=== PATIENT | female | born 1945 | race Caucasian/White ===

== ENCOUNTER 2018-09-05 16:37 | Emergency (ER) | payer MEDICARE, BC ==
[2018-09-05] MEDS ORDERED: Ondansetron PF 4 MG/2 ML Vial ONE (17:15)
[2018-09-05 17:24] LABS: #Eosinphils 0.2 thou/uL (0.0-0.7); #Lymphocytes 1.4 thou/uL (1.20-3.40); #Monocytes 0.6 thou/uL (0.11-0.59); #Neutrophils 5.3 thou/uL (1.40-6.50); %Lymphocytes 18.8 % (21.0-51.0); %Monocytes 7.9 % (0.0-10.0); %Neutrophils 71.3 % (42.0-75.0); Hemoglobin 12.8 g/dL (12.0-16.0); Mean Corpuscular HGB CONC 33.9 g/dL (32.0-36.0); Mean Corpuscular Hemoglobin 29.3 pg (27.0-31.0); Mean Corpuscular Volume 86.5 fL (78.0-98.0); Mean Platelet Volume 6.6 fL (7.4-10.4); Platelet Count 203 thou/uL (130-400); RBC Distribution Width 12.5 % (11.5-14.5); Red Blood Cell (RBC) Count 4.36 mill/uL (4.20-5.40); White Blood Cell (WBC) Count 7.4 thou/uL (4.8-10.8)
[2018-09-05 17:39] LABS: ALT (SGPT) 67 U/L (8-55); AST (SGOT) 121 U/L (5-34); Albumin 4.1 g/dL (3.4-4.8); Alkaline Phosphatase 104 U/L (40-150); Anion Gap 15 mmol/L (10-20); BUN (Urea Nitrogen) 16 mg/dL (9.8-20.1); Bilirubin, Total 1.3 mg/dL (0.2-1.2); Calc. Creatinine Clearance 0 mL/min (70-130); Carbon Dioxide 24 mmol/L (23-31); Chloride 105 mmol/L (98-107); Estimated GFR-MDRD 67; Globulin 2.4 g/dL (2.4-3.5); Glucose 193 mg/dL (83-110); Potassium 4.5 mmol/L (3.5-5.1); Protein, Total 6.5 g/dL (6.0-8.3); Sodium 139 mmol/L (136-145)
[2018-09-05 17:45] LABS: Bilirubin Negative (Negative); Blood, Urine Negative (Negative); Clarity CLEAR (Clear); Glucose, Urine (Dipstick) Negative (Negative); Leukocyte Trace (Negative); Nitrite Negative (Negative); Protein, Urine (Dipstick) Negative (Neg-Trace); Specific Gravity, Urine 1.024 (1.002-1.036)
[2018-09-05 17:47] LABS: Bacteria/HPF None Seen HPF (None Seen); Hyaline Casts/LPF 0-3 HYALINE CAST LPF (0-3 Hyaline); Pathc Cast-AUWi Flag 0.81 (0-2.49); RBC/HPF 0-3 HPF (0-3); Squamous Epithelial 0-3 HPF (0-3); WBC/HPF 0-3 HPF (0-3)
--- NOTE | 2018-09-05 17:52 | RAD ---
PORTABLE UPRIGHT FRONTAL CHEST RADIOGRAPH 09/05/18 COMPARISON: None. HISTORY: Abdominal pain. FINDINGS: Lungs are clear. Heart and mediastinal contours are unremarkable. IMPRESSION: No acute findings. POS: [facility]
== END 2018-09-05 19:09 | disposition home or self-care (01) ==
LOC: ERS 16:37
DX: R11.2 Nausea with vomiting, unspecified (principal); R19.7 Diarrhea, unspecified; E11.9 Type 2 diabetes mellitus without complications; Z79.899 Other long term (current) drug therapy; Z79.4 Long term (current) use of insulin
CPT/HCPCS: 71045; 80053; 81003; 81015; 83880; 84484; 85025; 93005; 96361; 96374; J2405

== ENCOUNTER 2019-03-06 19:47 | Observation (INO) | payer MEDICARE, BC ==
[2019-03-06 20:33] LABS: #Basophils 0.1 thou/uL (0.0-0.2); #Eosinphils 0.2 thou/uL (0.0-0.7); #Lymphocytes 2.3 thou/uL (1.20-3.40); #Monocytes 0.6 thou/uL (0.11-0.59); #Neutrophils 3.1 thou/uL (1.40-6.50); %Eosinophils 2.6 % (0.0-10.0); %Lymphocytes 37.1 % (21.0-51.0); %Monocytes 9.2 % (0.0-10.0); %Neutrophils 50.1 % (42.0-75.0); Hemoglobin 12.1 g/dL (12.0-16.0); Mean Corpuscular HGB CONC 34.3 g/dL (32.0-36.0); Mean Corpuscular Hemoglobin 29.7 pg (27.0-31.0); Mean Corpuscular Volume 86.6 fL (78.0-98.0); Mean Platelet Volume 6.6 fL (7.4-10.4); Platelet Count 204 thou/uL (130-400); RBC Distribution Width 12.6 % (11.5-14.5); Red Blood Cell (RBC) Count 4.07 mill/uL (4.20-5.40); White Blood Cell (WBC) Count 6.2 thou/uL (4.8-10.8)
--- NOTE | 2019-03-06 20:41 | RAD ---
Frontal radiograph chest: 03/06/2019 COMPARISON: 09/05/2018 HISTORY: Chest pain FINDINGS: There is mild soft tissue density in the right paratracheal region. There is no pneumothora x or pleural fluid and no focal consolidation or alveolar edema. IMPRESSION: Mild soft tissue density in the right paratracheal region is likely on the basis of vascu lar structures. Follow-up PA and lateral imaging of the chest advised to exclude lymphadenopathy. No focal consolidation or alveolar edema.
[2019-03-06 20:54] LABS: ALT (SGPT) 21 U/L (8-55); AST (SGOT) 16 U/L (5-34); Albumin 4.1 g/dL (3.4-4.8); Alkaline Phosphatase 77 U/L (40-150); Anion Gap 11 mmol/L (10-20); BUN (Urea Nitrogen) 15 mg/dL (9.8-20.1); Bilirubin, Total 0.3 mg/dL (0.2-1.2); CK (CPK) 433 U/L (29-168); Calc. Creatinine Clearance 0 mL/min (70-130); Calcium 9.2 mg/dL (7.8-10.44); Carbon Dioxide 30 mmol/L (23-31); Chloride 102 mmol/L (98-107); Estimated GFR-MDRD 42; Globulin 2.3 g/dL (2.4-3.5); Glucose 268 mg/dL (83-110); Potassium 4.2 mmol/L (3.5-5.1); Protein, Total 6.4 g/dL (6.0-8.3); Sodium 139 mmol/L (136-145)
[2019-03-06] MEDS ORDERED: Ondansetron PF 4 MG/2 ML Vial IVP PRN (23:37)
[2019-03-06] MEDS ORDERED: Acetaminophen 325 MG TAB PO PRN (23:37)
[2019-03-06] MEDS ORDERED: Ondansetron ODT 4 MG TAB SL PRN (23:37)
[2019-03-07] VITALS: BMI 38.0
[2019-03-07 00:11] LABS: Troponin I Less than 0.010 ng/mL (< 0.028)
[2019-03-07 02:52] LABS: Troponin I Less than 0.010 ng/mL (< 0.028)
[2019-03-07 08:49] LABS: #Eosinphils 0.1 thou/uL (0.0-0.7); #Monocytes 0.5 thou/uL (0.11-0.59); #Neutrophils 3.4 thou/uL (1.40-6.50); %Basophils 0.4 % (0.0-1.0); %Eosinophils 2.3 % (0.0-10.0); %Lymphocytes 32.8 % (21.0-51.0); %Monocytes 8.7 % (0.0-10.0); %Neutrophils 55.7 % (42.0-75.0); Hemoglobin 12.2 g/dL (12.0-16.0); Mean Corpuscular HGB CONC 34.4 g/dL (32.0-36.0); Mean Corpuscular Hemoglobin 29.2 pg (27.0-31.0); Mean Corpuscular Volume 84.9 fL (78.0-98.0); Mean Platelet Volume 6.6 fL (7.4-10.4); Platelet Count 197 thou/uL (130-400); RBC Distribution Width 12.7 % (11.5-14.5); Red Blood Cell (RBC) Count 4.16 mill/uL (4.20-5.40); White Blood Cell (WBC) Count 6.1 thou/uL (4.8-10.8)
[2019-03-07 09:03] LABS: Anion Gap 12 mmol/L (10-20); BUN (Urea Nitrogen) 16 mg/dL (9.8-20.1); Calc. Creatinine Clearance 89 mL/min (70-130); Calcium 8.8 mg/dL (7.8-10.44); Carbon Dioxide 26 mmol/L (23-31); Cardiac Risk 3.3 (Less than 4.5); Chloride 105 mmol/L (98-107); Cholesterol 116 mg/dl (< 200 Desired); Estimated GFR-MDRD 62; Glucose 268 mg/dL (83-110); HDL Cholesterol 35 mg/dL (>60 Neg Risk); LDL Cholesterol, Calculated 53 mg/dL; Magnesium 1.6 mg/dL (1.6-2.6); Potassium 4.5 mmol/L (3.5-5.1); Sodium 138 mmol/L (136-145); Triglycerides 142 mg/dL (Less than 150)
[2019-03-07] MEDS ORDERED: ADENOSINE 60 MG/20 ML VIAL ONE (09:50)
[2019-03-07] MEDS: Hydrochlorothiazide 25 MG TAB PO SCH (10:03)
[2019-03-07] MEDS: Amlodipine 5 MG TAB PO SCH (10:03)
[2019-03-07] MEDS: Losartan 25 MG TAB PO SCH ×2 (10:04→20:29)
[2019-03-07] MEDS: HumaLOG 300 UNITS/3 ML VIAL SC SCH ×2 (12:24→17:54)
[2019-03-07] MEDS: Aspirin/APAP/Caffeine Tab (Excedrin Migraine) PO SCH ×3 (12:27→23:37)
--- NOTE | 2019-03-07 15:08 | RAD ---
EXAM: Two views chest PROVIDED CLINICAL HISTORY: Abnormal chest radiograph COMPARISON: 03/06/2019 FINDINGS: Cardiac and mediastinal silhouette appears within normal limits. Lungs appear free of significant opa city. No pleural fluid or pneumothorax apparent. IMPRESSION: No evidence for an acute cardiopulmonary process.
[2019-03-07] MEDS: Nebivolol HCl 5 MG TAB PO SCH ×2 (15:52→20:30)
[2019-03-07] MEDS: Icosapent Ethyl [Vascepa] 1 GM PO SCH (20:28)
[2019-03-07] MEDS ORDERED: Clopidogrel Bisulfate 75 MG TAB PO SCH (21:00)
[2019-03-07] MEDS ORDERED: Rosuvastatin 10 MG TAB PO SCH (21:00)
[2019-03-07] MEDS: Insulin Glargine 75 UNITS in Pre-Filled Syringe 1 EACH SC SCH (21:20)
[2019-03-08 05:36] LABS: #Basophils 0.1 thou/uL (0.0-0.2); #Eosinphils 0.2 thou/uL (0.0-0.7); #Lymphocytes 2.1 thou/uL (1.20-3.40); #Monocytes 0.6 thou/uL (0.11-0.59); #Neutrophils 3.4 thou/uL (1.40-6.50); %Eosinophils 2.5 % (0.0-10.0); %Lymphocytes 33.7 % (21.0-51.0); %Neutrophils 53.9 % (42.0-75.0); Hemoglobin 12.5 g/dL (12.0-16.0); Mean Corpuscular HGB CONC 34.6 g/dL (32.0-36.0); Mean Corpuscular Hemoglobin 29.8 pg (27.0-31.0); Mean Corpuscular Volume 86.1 fL (78.0-98.0); Mean Platelet Volume 7.1 fL (7.4-10.4); Platelet Count 193 thou/uL (130-400); RBC Distribution Width 12.8 % (11.5-14.5); White Blood Cell (WBC) Count 6.2 thou/uL (4.8-10.8)
[2019-03-08] MEDS: Aspirin/APAP/Caffeine Tab (Excedrin Migraine) PO SCH ×2 (05:42→09:10)
[2019-03-08 05:52] LABS: Anion Gap 13 mmol/L (10-20); BUN (Urea Nitrogen) 19 mg/dL (9.8-20.1); Calc. Creatinine Clearance 84 mL/min (70-130); Calcium 9.1 mg/dL (7.8-10.44); Carbon Dioxide 26 mmol/L (23-31); Chloride 101 mmol/L (98-107); Estimated GFR-MDRD 58; Glucose 279 mg/dL (83-110); Potassium 4.5 mmol/L (3.5-5.1); Sodium 135 mmol/L (136-145)
[2019-03-08] MEDS ORDERED: Levothyroxine Sodium 75 MCG TAB PO SCH (06:00)
[2019-03-08 07:17] VITALS: TEMP 97.6
--- NOTE | 2019-03-08 07:48 | HP ---
PRIMARY CARE PHYSICIAN: Dr. Gage. CHIEF COMPLAINT: Chest pain. HISTORY OF PRESENT ILLNESS: Ms. Wong is a 74-year-old female with past medical history of hypertension, hyperlipidemia, diabetes mellitus type 2 and coronary artery disease, who had presented to the ED late last night after she had felt some chest tightness and felt that someone was standing on her chest. She had taken her home dose of Ranexa that helped and she states that the chest tightness worsened when she was up and exerting herself and stated that she was not able to take a few steps without noticing the symptoms. She states that she sees Dr. Cramer, who is a laborer [employer], and she states that she also has a history of [id number]; however, this was treated status post ablation. In the ED, she was given fluid bolus of IV normal saline since she had already taken aspirin 325, and she was found to be in normal sinus rhythm with PVC. Her serial troponins were found to be negative x3 and she had no further symptoms at that time. She was transferred up to the floor for further monitoring and rule out of her chest pain. She had then denies any further fever, chills, headache, blurred vision, dizziness, chest pain, palpitations, shortness of breath, abdominal pain, nausea, or vomiting. REVIEW OF SYSTEMS: All other systems were reviewed and found to be negative unless mentioned in HPI. PAST MEDICAL HISTORY: Hypertension, hyperlipidemia, diabetes mellitus type 2, coronary artery disease and history of Sxqyd-[id number]-Mjujg syndrome. PAST SURGICAL HISTORY: Cardiac catheterization and ablation for [id number]. PSYCHIATRIC HISTORY: None. SOCIAL HISTORY: The patient denies alcohol, tobacco, or illicit drug use. ALLERGIES: CODEINE, PENICILLINS, AND SULFA. CURRENT HOME MEDICATIONS: 1. Amlodipine 5 mg p.o. daily. 2. Aspirin 325 mg oral daily. 3. Clopidogrel 75 mg p.o. daily. 4. Humalog 15 units subcu before meals. 5. Hydrochlorothiazide 25 mg oral daily. 6. Vascepa 4 g p.o. b.i.d. 7. Insulin glargine/Lantus 75 units subcu b.i.d. 8. Levothyroxine 75 mg p.o. daily. 9. Bystolic 40 mg p.o. b.i.d. 10. Protonix 40 mg oral daily. 11. Ranolazine 1000 mg p.o. b.i.d. 12. Rosuvastatin 10 mg p.o. at bedtime. 13. Telmisartan 40 mg p.o. b.i.d. PHYSICAL EXAMINATION: VITAL SIGNS: BP 148/67, pulse 64, respirations 16, temperature 97.9, O2 saturation 95% on room air. GENERAL: The patient is awake, alert, and oriented x3. She is currently lying comfortably in bed and in no acute distress. Her is at bedside. HEENT: Atraumatic, normocephalic. Pupils are round and reactive to light. Extraocular muscles are intact. Moist mucous membranes noted. NECK: Soft. Supple. Trachea midline. CARDIOVASCULAR: Positive S1 and S2. Regular rate and rhythm. No murmur auscultated. RESPIRATORY: Clear to auscultation bilaterally. No wheezes, rales, or rhonchi. ABDOMEN: Soft, nontender. Bowel sounds present. EXTREMITIES: Moves all extremities equal. Pedal and radial pulses 2+ bilaterally. No edema noted. NEUROLOGIC: Cranial nerves 2 through 12 grossly intact. No focal deficits noted. Speech intact and normal. Gait not assessed. SKIN: Warm, dry, and intact. No rashes. No ulceration noted. PSYCHIATRIC: Good mood and affect. LABORATORY DATA: WBC 6.1, RBC 4.16, hemoglobin 12.2, platelet 197. Sodium 138, potassium 4.5, anion gap 12, BUN 16, creatinine 0.89, estimated GFR 62, glucose 268, magnesium 1.6. Troponin less than 0.010 x3. Triglycerides 142, cholesterol 116, LDL 53, HDL 35. DIAGNOSTIC IMAGING: Portable chest x-ray showed mild soft tissue density in the right paratracheal region, is likely on the basis of vascular structures. However, follow up PA and lateral imaging of the chest, advised to exclude lymphadenopathy with no focal consolidation or alveolar edema noted. ASSESSMENT AND PLAN: 1. Chest pain. Her serial troponins were found to be negative x3. An echocardiogram and a nuclear medicine stress test ordered to rule out acute coronary syndrome at this time. She will be resumed on her home medications and monitored on telemetry for any further arrhythmia. She is currently asymptomatic at this time. Based off her workup if her test positive, we will consult Cardiology Services at that time and she sees Dr. Cramer as outpatient. 2. Hypertension. Continue home regimen and monitor blood pressure and other vital signs closely. 3. Hyperlipidemia, continue home statin. 4. Hypothyroidism, continue home Synthroid and check TSH. 5. Diabetes mellitus. Continue home regimen with frequent Accu-Cheks. 6. History of coronary artery disease. 7. Mild soft tissue density found on portable chest x-ray. We will order PA and lateral chest x-ray as recommended for further followup. 8. Deep venous thrombosis and gastrointestinal prophylaxis. CODE STATUS: Full code. Surrogate decision maker is her , Sunny. DISPOSITION: Pending further workup and clinical findings. Job ID: [id number]
--- NOTE | 2019-03-08 08:45 | NM ---
Radionucleotide stress and rest myocardial perfusion scan with CT attenuation correction and SPECT im aging Left ventricular wall motion evaluation and ejection fraction HISTORY: Chest pain. FINDINGS: Heterogeneous uptake of radiotracer throughout the left ventricular stress and rest images. No focal perfusion defect or reversibility. QGS analysis of gated SPECT images shows no focal wall motion abnormalities. Ejection fraction calcul ated at 78%. IMPRESSION: Normal myocardial perfusion scan. Normal LVEF.
[2019-03-08] MEDS: Insulin Glargine 75 UNITS in Pre-Filled Syringe 1 EACH SC SCH (09:08)
[2019-03-08] MEDS: Amlodipine 5 MG TAB PO SCH (09:08)
[2019-03-08] MEDS: Losartan 25 MG TAB PO SCH (09:08)
[2019-03-08] MEDS: Hydrochlorothiazide 25 MG TAB PO SCH (09:08)
[2019-03-08] MEDS: Nebivolol HCl 5 MG TAB PO SCH (09:09)
[2019-03-08] MEDS: HumaLOG 300 UNITS/3 ML VIAL SC SCH ×2 (09:21→11:00)
[2019-03-08] MEDS: Icosapent Ethyl [Vascepa] 1 GM PO SCH (09:28)
[2019-03-08 11:10] VITALS: BP 162/69
--- NOTE | 2019-03-08 11:46 | DIS ---
DATE OF ADMISSION: 03/06/2019 DATE OF DISCHARGE: 03/08/2019 PRIMARY CARE PROVIDER: Dr. Francisco Gage. DISPOSITION: Discharged home. FINAL DIAGNOSES: Noncardiac chest pain, coronary artery disease, hypertension, diabetes mellitus type 2, dyslipidemia. DISCHARGE MEDICINES: Same as home medicines. 1. Vascepa two tablets twice a day. 2. Amlodipine 5 mg a day. 3. Levothyroxine 75 mcg a day. 4. Plavix 75 mg a day. 5. Protonix 40 mg a day. 6. Hydrochlorothiazide 25 mg a day. 7. Ranolazine ER 1000 mg twice a day. 8. Bystolic 40 mg twice a day. 9. Crestor 10 mg a day. 10. Micardis 40 mg twice a day. 11. Lantus 75 units subcu twice a day. 12. Sliding scale Humalog. ALLERGIES: TO CODEINE, PENICILLINS, AND SULFA. DIET: Diabetic. CODE STATUS: Full. PENDING AT TIME OF DISCHARGE: Nothing. CONSULTATIONS: None. PROCEDURES: None. HOSPITAL COURSE: The patient was admitted with pressure chest pain. Her CBC was unremarkable. Blood sugar was 268. Comprehensive metabolic profile otherwise, the only abnormality was notably creatinine at 1.26, which came down to 0.89 with fluids. Serial troponins were normal. Nuclear medicine cardiac stress test is normal. The patient is asymptomatic. Vital signs are stable. I have discussed this with her. She is comfortable with going home. Cholesterol was 116, LDL was 53, HDL was 35, triglycerides 142. She has been asked to see Dr. Gage in 1 week for followup. Job ID: [id number]
== END 2019-03-08 12:50 | disposition home or self-care (01) ==
LOC: ERS 19:47 → 2NO 23:37
PROVIDERS: ADMIT Hospitalist; ATTEND Hospitalist
DX: R07.89 Other chest pain (principal); I25.10 Atherosclerotic heart disease of native coronary artery without angina pectoris; I10 Essential (primary) hypertension; E11.9 Type 2 diabetes mellitus without complications; E78.5 Hyperlipidemia, unspecified; E03.9 Hypothyroidism, unspecified; Z79.02 Long term (current) use of antithrombotics/antiplatelets; Z79.4 Long term (current) use of insulin; Z79.899 Other long term (current) drug therapy; Z88.0 Allergy status to penicillin; Z88.2 Allergy status to sulfonamides; Z88.5 Allergy status to narcotic agent; Z98.890 Other specified postprocedural states
CPT/HCPCS: 71045; 71046; 78452; 80048 ×2; 80053; 80061; 82550; 82962 ×2; 83735; 84484 ×3; 85025 ×3; 85379; 93005; 93017; 93306; 94760; 96360; 99285; A9500; G0378 ×3; 36415; 36416; J0153; J1815

== ENCOUNTER 2019-07-08 03:34 | Emergency (ER) | payer MEDICARE, BC ==
[2019-07-08 04:18] LABS: Anion Gap 13 mmol/L (10-20); BUN (Urea Nitrogen) 13 mg/dL (9.8-20.1); Calc. Creatinine Clearance 0 mL/min (70-130); Calcium 9.5 mg/dL (7.8-10.44); Carbon Dioxide 28 mmol/L (23-31); Chloride 104 mmol/L (98-107); Estimated GFR-MDRD 60; Glucose 124 mg/dL (83-110); Sodium 141 mmol/L (136-145)
== END 2019-07-08 06:06 | disposition home or self-care (01) ==
LOC: ERS 03:34
DX: T38.3X1A Poisoning by insulin and oral hypoglycemic [antidiabetic] drugs, accidental (unintentional), initial encounter (principal); E11.9 Type 2 diabetes mellitus without complications; Z79.4 Long term (current) use of insulin
CPT/HCPCS: 36416; 80048; 99284